=== PATIENT | male | born 1995 | race Caucasian/White ===

== ENCOUNTER 2019-01-23 05:38 | Day surgery (SDC) | payer MEDICAID ==
[~2019-01-23] VITALS: Ht 170.2 cm; Wt 59.6 kg
[~2019-01-23 05:38] MED LIST: DEXL60CA2 PO; RANI-535 PO
[2019-01-23 06:57] VITALS: Ht 170.2 cm; Wt 59.6 kg
[2019-01-23 07:08] VITALS: BP 122/84; PULSE 53; RESP 24
[2019-01-23] MEDS ORDERED: FENTAnyl 50 MCG/ML VIAL ONE (08:17)
[2019-01-23] MEDS ORDERED: MIDAZOLAM 1 MG/ML 2 ML INJ ONE ×3 (08:17→08:18)
[2019-01-23 08:36] VITALS: BP 100/56; RESP 20
== END 2019-01-23 11:05 | disposition home or self-care (01) ==
LOC: GIL 05:38
PROVIDERS: ATTEND Internal Medicine Gastroenterology
DX: K44.9 Diaphragmatic hernia without obstruction or gangrene (principal); K21.9 Gastro-esophageal reflux disease without esophagitis
CPT/HCPCS: 43239; 88305; J2250; J3010; Z7610